=== PATIENT | male | born 1990 | race Asian ===

== ENCOUNTER 2024-12-03 18:50 | Emergency (ER) | payer OTHER ==
[~2024-12-03] VITALS: Ht 172.7 cm; Wt 95.3 kg
[2024-12-03 19:01] VITALS: TEMP 98.2
[2024-12-03 19:18] VITALS: BP 176/109; O2SAT 100
[2024-12-03] MEDS ORDERED: KETOROLAC TROMETHAMINE INJ 30 MG/ML VIAL ONE (21:50)
[2024-12-03] MEDS: MORPHINE SULFATE INJ 2 MG/ML DISP.SYRIN IV ONE (21:54)
[2024-12-03] MEDS: KETOROLAC TROMETHAMINE INJ 30 MG/ML VIAL IM ONE (22:04)
== END 2024-12-03 22:22 | disposition left against medical advice (07) ==
LOC: ER 18:50
DX: S12.8XXA Fracture of other parts of neck, initial encounter (principal); S39.94XA Unspecified injury of external genitals, initial encounter; J45.909 Unspecified asthma, uncomplicated; Z87.19 Personal history of other diseases of the digestive system; Z88.1 Allergy status to other antibiotic agents; Z88.2 Allergy status to sulfonamides; Z90.49 Acquired absence of other specified parts of digestive tract; W11.XXXA Fall on and from ladder, initial encounter; Y93.89 Activity, other specified; Y92.89 Other specified places as the place of occurrence of the external cause; Y99.0 Civilian activity done for income or pay
CPT/HCPCS: 99285; 70450; 96372; 76870; 70490; J1885